=== PATIENT | female | born 1970 | race Two or more races ===

== ENCOUNTER 2020-08-30 14:14 | Outpatient (CLI) | payer OTHER ==
--- NOTE | 2020-08-30 17:14 | Consultation ---
DATE OF CONSULTATION: 08/30/2020 CHIEF COMPLAINT: Referral for screening colonoscopy. PAST MEDICAL HISTORY: None. PAST SURGICAL HISTORY: Cholecystectomy, . MEDICATIONS: None. ALLERGIES: No known allergies. FAMILY HISTORY: No family history of GI malignancies. SOCIAL HISTORY: The patient denies any tobacco, alcohol, or drug abuse. REVIEW OF SYSTEMS: Twelve point review of systems performed and was negative. PHYSICAL EXAMINATION: VITAL SIGNS: Temperature 96.9. Vital signs stable. Weight is 161. HEENT: Normocephalic and atraumatic. Sclerae anicteric. NECK: Supple. No evidence of obvious lymphadenopathy. CARDIOVASCULAR: Regular rate and rhythm. Plus S1, S2. LUNGS: Clear to auscultation bilaterally. ABDOMEN: Positive bowel sounds. Soft and nontender. No rebound. No guarding. No peritoneal sign. EXTREMITIES: No cyanosis, no clubbing, no edema. ASSESSMENT AND PLAN: A 49-year-old female was referred for screening colonoscopy. The patient was given instruction for colonoscopy. Risks and benefits of procedure was explained to her. We will schedule as soon as authorization is obtained. Joel Varela M.D. DR: Carmen JOB#: [id number] CC:
== END 2020-08-30 16:14 | disposition home or self-care (01) ==
LOC: PAN 14:14
DX: Z00.00 Encounter for general adult medical examination without abnormal findings (principal); Z90.49 Acquired absence of other specified parts of digestive tract
CPT/HCPCS: G0463